=== PATIENT | male | born 1955 | race Caucasian/White ===

== ENCOUNTER → 2024-03-09 06:35 | Day surgery (SDC) | payer MEDICARE, OTHER, SELFPAY | LOC: GI 06:35 | PROVIDERS: ATTENDING PHYSICIAN Internal Medicine Gastroenterology | DX: Z12.11 Encounter for screening for malignant neoplasm of colon (principal); K64.8 Other hemorrhoids; D12.3 Benign neoplasm of transverse colon; Z85.038 Personal history of other malignant neoplasm of large intestine | CPT/HCPCS: 45380; 88305 ==